=== PATIENT | male | born 1995 | race African-American/Black ===

== ENCOUNTER 2016-05-27 15:00 | Emergency (ER) | payer MEDICAID ==
[~2016-05-27] VITALS: Ht 182.9 cm; Wt 80.0 kg
[2016-05-27 15:50] VITALS: BP 148/88
[2016-05-27] MEDS ORDERED: LORAZEPAM 0.5MG TABLET PO ONE (16:00)
== END 2016-05-27 16:40 | disposition left against medical advice (07) ==
LOC: ER 15:00
DX: R44.0 Auditory hallucinations (principal); F12.10 Cannabis abuse, uncomplicated; F14.10 Cocaine abuse, uncomplicated; F15.10 Other stimulant abuse, uncomplicated
CPT/HCPCS: 99284